=== PATIENT | female | born 1945 | race Caucasian/White ===

== ENCOUNTER 2023-05-06 19:04 | Emergency (ER) | payer MEDICARE, OTHER ==
[~2023-05-06] VITALS: Ht 160 cm; Wt 52.0 kg
[2023-05-06] VITALS (7 sets, daily range): BP systolic 123–164; BP diastolic 56–100
== END 2023-05-06 20:50 | disposition home or self-care (01) ==
LOC: ED 19:04
DX: S00.11XA Contusion of right eyelid and periocular area, initial encounter (principal); I10 Essential (primary) hypertension; W01.0XXA Fall on same level from slipping, tripping and stumbling without subsequent striking against object, initial encounter; Y92.009 Unspecified place in unspecified non-institutional (private) residence as the place of occurrence of the external cause